=== PATIENT | female | born 2000 | race Caucasian/White ===

== ENCOUNTER 2024-06-14 16:29 | Emergency (ER) | payer MEDICAID ==
[~2024-06-14] VITALS: Ht 154.9 cm; Wt 88.5 kg
[2024-06-14] MEDS ORDERED: hydrOXYzine pamoate 25 MG CAP PO ONE (17:00)
[2024-06-14] MEDS ORDERED: VISTARIL25 MG PO (17:56)
== END 2024-06-14 18:33 | disposition home or self-care (01) ==
LOC: ED 16:29
DX: F41.9 Anxiety disorder, unspecified (principal); R07.89 Other chest pain; F17.290 Nicotine dependence, other tobacco product, uncomplicated

== ENCOUNTER 2024-11-10 13:20 | Emergency (ER) | payer MEDICAID ==
[~2024-11-10] VITALS: Ht 157.4 cm; Wt 93.4 kg
[~2024-11-10 13:20] MED LIST: VISTARIL25 MG PO
[2024-11-10 14:19] LABS: BASO # 0.1 10*3/uL (0.0-0.1); BASO % 0.7 % (0.0-1.0); EOS # 0.3 10*3/uL (0.0-0.4); EOS % 3.6 % (1.0-4.0); MEAN CELL VOLUME 89.7 fl (81.0-99.0); MEAN CORPUSCULAR HGB 30.1 pg (27.0-31.0); MEAN CORPUSCULAR HGB CONC 33.6 g/dl (33.0-37.0); MEAN PLATELET VOLUME 9.3 fl (9.6-12.3); MONO # 0.3 10*3/uL (0.1-1.0); MONO % 4.1 % (3.0-9.0); NEUT # 4.6 10*3/uL (2.3-7.9); NEUT % 60.7 % (47.0-73.0); PLATELET COUNT AUTOMATED 238 10*3/uL (130-400); RED BLOOD COUNT 4.68 10*6/uL (4.10-5.10); RED CELL DISTRI WIDTH 13.2 % (0-14.5); WHITE BLOOD COUNT 7.6 10*3/uL (4.8-10.8)
[2024-11-10 14:36] LABS: BUN 13 mg/dl (9-23); CHLORIDE 107 mmol/L (98-107)
[2024-11-10] MEDS ORDERED: Sulfamethoxazole/Trimethopri 1 TAB TAB PO ONE (15:15)
[2024-11-10] MEDS ORDERED: SEPTDS PO (15:16)
== END 2024-11-10 15:32 | disposition home or self-care (01) ==
LOC: ED 13:20
PROVIDERS: Emergency Medicine
DX: L03.311 Cellulitis of abdominal wall (principal); Z91.030 Bee allergy status; Z98.890 Other specified postprocedural states

== ENCOUNTER 2024-11-14 08:42 | Emergency (ER) | payer MEDICAID ==
[~2024-11-14] VITALS: Ht 157.4 cm; Wt 102.7 kg
[~2024-11-14 08:42] MED LIST changes: +SEPTDS PO
[2024-11-14 09:29] LABS: BASO % 0.4 % (0.0-1.0); EOS # 0.2 10*3/uL (0.0-0.4); EOS % 2.5 % (1.0-4.0); HEMATOCRIT 40.1 % (37.0-47.0); MEAN CELL VOLUME 88.7 fl (81.0-99.0); MEAN CORPUSCULAR HGB 30.1 pg (27.0-31.0); MEAN CORPUSCULAR HGB CONC 33.9 g/dl (33.0-37.0); MEAN PLATELET VOLUME 9.2 fl (9.6-12.3); MONO # 0.3 10*3/uL (0.1-1.0); MONO % 4.4 % (3.0-9.0); NEUT # 4.9 10*3/uL (2.3-7.9); NEUT % 63.2 % (47.0-73.0); PLATELET COUNT AUTOMATED 242 10*3/uL (130-400); RED BLOOD COUNT 4.52 10*6/uL (4.10-5.10); RED CELL DISTRI WIDTH 13.3 % (0-14.5); WHITE BLOOD COUNT 7.7 10*3/uL (4.8-10.8)
[2024-11-14 09:59] LABS: ALKALINE PHOSPHATASE 59 U/L (46-116); BUN 13 mg/dl (9-23); CHLORIDE 107 mmol/L (98-107); POTASSIUM 3.2 mmol/L (3.4-5.1); SGPT/ALT 25 U/L (5-49); TOTAL PROTEIN 7.1 gm/dL (6.0-8.0)
[2024-11-14] MEDS ORDERED: KEFLEX 500 MG E2 CAP PO (12:38)
== END 2024-11-14 12:48 | disposition home or self-care (01) ==
LOC: ED 08:42
PROVIDERS: Emergency Medicine
DX: A49.02 Methicillin resistant Staphylococcus aureus infection, unspecified site (principal); F41.9 Anxiety disorder, unspecified; Z79.899 Other long term (current) drug therapy; Z91.030 Bee allergy status; Z98.890 Other specified postprocedural states

== ENCOUNTER 2024-12-09 17:57 | Emergency (ER) | payer OTHER ==
[~2024-12-09] VITALS: Ht 154.9 cm; Wt 104.3 kg
[~2024-12-09 17:57] MED LIST changes: +KEFLEX 500 MG E2 CAP PO
[2024-12-09] MEDS ORDERED: methylPREDNISolone acetate 40 MG/ML VIAL IM ONE (18:20)
[2024-12-09] MEDS ORDERED: MYCOLOG OINTMEN15 GM T (18:30)
[2024-12-09] MEDS ORDERED: PREDNISONE10 M1 PO (18:30)
== END 2024-12-09 19:05 | disposition home or self-care (01) ==
LOC: ED 17:57
DX: L25.5 Unspecified contact dermatitis due to plants, except food (principal); Z91.030 Bee allergy status; Z98.890 Other specified postprocedural states

== ENCOUNTER 2024-12-21 10:34 | Emergency (ER) | payer OTHER ==
[~2024-12-21] VITALS: Ht 154.9 cm; Wt 102.1 kg
[~2024-12-21 10:34] MED LIST changes: +MYCOLOG OINTMEN15 GM T; +PREDNISONE10 M1 PO
[2024-12-21] MEDS ORDERED: SODIUM POLYSTYRENE SULFONATE 15 GM/60 ML BOT PO ONE (10:55)
[2024-12-21] MEDS ORDERED: MAGNESIUM CITRATE 296 ML BOT PO ONE (10:55)
[2024-12-21] MEDS ORDERED: COLACE 2-IN-11 EACH PO (11:54)
== END 2024-12-21 12:00 | disposition home or self-care (01) ==
LOC: ED 10:34
DX: K59.00 Constipation, unspecified (principal); Z91.030 Bee allergy status; Z79.899 Other long term (current) drug therapy; Z98.890 Other specified postprocedural states

== ENCOUNTER 2025-02-02 16:46 | Emergency (ER) | payer OTHER ==
[~2025-02-02] VITALS: Ht 154.9 cm; Wt 90.7 kg
[~2025-02-02 16:46] MED LIST changes: +COLACE 2-IN-11 EACH PO
[2025-02-02] MEDS ORDERED: SODIUM CHLORIDE 0.9% 1,000 ML IV ONE (16:55)
[2025-02-02] MEDS ORDERED: IOHEXOL 300 MG/ML 100 ML VIAL IV ONE (17:05)
[2025-02-02 17:08] LABS: BASO # 0.0 10*3/uL (0.0-0.1); BASO % 0.3 % (0.0-1.0); EOS # 0.1 10*3/uL (0.0-0.4); EOS % 0.8 % (1.0-4.0); MEAN CELL VOLUME 85.3 fl (81.0-99.0); MEAN CORPUSCULAR HGB 30.3 pg (27.0-31.0); MEAN PLATELET VOLUME 9.3 fl (9.6-12.3); MONO # 0.5 10*3/uL (0.1-1.0); MONO % 5.2 % (3.0-9.0); NEUT # 6.2 10*3/uL (2.3-7.9); NEUT % 68.3 % (47.0-73.0); NUCLEATED RED BLOOD CELL 0.0 % (0.0-0.0); NUCLEATED RED BLOOD CELL 0.0 10*3/uL (0.0-0.0); PLATELET COUNT AUTOMATED 264 10*3/uL (130-400); RED CELL DISTRI WIDTH 13.2 % (0-14.5)
[2025-02-02] MEDS ORDERED: Metoclopramide Hydrochloride 10 MG/2 ML VIAL IV ONE (17:10)
[2025-02-02] MEDS ORDERED: diphenhydrAMINE hydrochloride 50 MG/ML VIAL IV ONE (17:10)
[2025-02-02] MEDS ORDERED: IOHEXOL 300 MG/ML 100 ML VIAL ONE (17:27)
[2025-02-02 17:29] LABS: BUN 13 mg/dl (9-23); SGPT/ALT 27 U/L (5-49)
[2025-02-02 18:35] LABS: BILIRUBIN Negative (Negative); BLOOD Negative (Negative); CLARITY Clear (Clear); COLOR Yellow (Yellow); KETONE 2+ (Negative); LEUKO ESTERASE Negative (Negative); NITRITE Negative (Negative); PH 5.5 (4.5-8.0); SPECIFIC GRAVITY >= 1.030 (1.001-1.030); UROBILINOGEN 1.0 E.U./dl (0.0-1.0)
[2025-02-02 18:42] LABS: URINE AMPHETAMINES Negative (1000ng/ml); URINE BARBITURATES Negative (200ng/ml); URINE BENZODIAZEPINES Negative (200ng/ml); URINE CANNABINOIDS (THC) Positive (50ng/ml); URINE COCAINE Negative (300ng/ml); URINE METHADONE Negative (300ng/ml); URINE OPIATES Negative (300ng/ml); URINE PHENCYCLIDINE Negative (25ng/ml)
[2025-02-02 19:02] LABS: BACTERIA 1+; EPITHELIAL CELLS 51-100; MUCOUS TRACE; WBC 0-2 wbc/hpf (0-5)
[2025-02-02] MEDS ORDERED: Ondansetron Hydrochloride 4 MG/2 ML VIAL IV ONE (19:35)
[2025-02-02] MEDS ORDERED: REGLAN10 M1 PO (20:07)
[2025-02-02] MEDS ORDERED: OMEPRAZOLE40 MG PO (20:07)
[2025-02-02] MEDS ORDERED: Ondansetron4 MG PO (20:07)
[2025-02-02] MEDS ORDERED: Ondansetron 4 MG 2 TAB ED PACK PO SCH (20:10)
[2025-02-06] MEDS ORDERED: EFFER-K20 MEQ PO (08:58)
== END 2025-02-02 20:32 | disposition home or self-care (01) ==
LOC: ED 16:46
PROVIDERS: Internal Medicine
DX: F12.10 Cannabis abuse, uncomplicated (principal); R11.2 Nausea with vomiting, unspecified; R10.9 Unspecified abdominal pain; F41.9 Anxiety disorder, unspecified; Z91.030 Bee allergy status; Z79.899 Other long term (current) drug therapy; Z98.890 Other specified postprocedural states

== ENCOUNTER 2025-02-05 17:25 | Emergency (ER) | payer OTHER ==
[~2025-02-05] VITALS: Ht 154.9 cm; Wt 98.0 kg
[~2025-02-05 17:25] MED LIST changes: +OMEPRAZOLE40 MG PO; +Ondansetron4 MG PO; +REGLAN10 M1 PO
[2025-02-05] MEDS ORDERED: diphenhydrAMINE hydrochloride 50 MG/ML VIAL IV ONE (18:15)
[2025-02-05] MEDS ORDERED: IOHEXOL 300 MG/ML 100 ML VIAL IV ONE (18:15)
[2025-02-05] MEDS ORDERED: SODIUM CHLORIDE 0.9% 1,000 ML IV ONE (18:15)
[2025-02-05] MEDS ORDERED: Metoclopramide Hydrochloride 10 MG/2 ML VIAL IV ONE (18:15)
[2025-02-05 18:22] LABS: BASO # 0.0 10*3/uL (0.0-0.1); BASO % 0.3 % (0.0-1.0); EOS # 0.0 10*3/uL (0.0-0.4); EOS % 0.2 % (1.0-4.0); MEAN CELL VOLUME 87.0 fl (81.0-99.0); MEAN CORPUSCULAR HGB 29.9 pg (27.0-31.0); MEAN PLATELET VOLUME 9.4 fl (9.6-12.3); MONO # 0.5 10*3/uL (0.1-1.0); MONO % 5.2 % (3.0-9.0); NEUT # 7.9 10*3/uL (2.3-7.9); NEUT % 78.9 % (47.0-73.0); NUCLEATED RED BLOOD CELL 0.0 % (0.0-0.0); NUCLEATED RED BLOOD CELL 0.0 10*3/uL (0.0-0.0); PLATELET COUNT AUTOMATED 269 10*3/uL (130-400); RED CELL DISTRI WIDTH 13.1 % (0-14.5)
[2025-02-05] MEDS ORDERED: IOHEXOL 300 MG/ML 100 ML VIAL ONE (18:37)
[2025-02-05 18:44] LABS: BUN 11 mg/dl (9-23); SGPT/ALT 55 U/L (5-49)
[2025-02-05 19:37] LABS: BILIRUBIN Negative (Negative); BLOOD Negative (Negative); CLARITY Clear (Clear); COLOR Yellow (Yellow); KETONE 3+ (Negative); LEUKO ESTERASE Negative (Negative); NITRITE Negative (Negative); PH 6.0 (4.5-8.0); SPECIFIC GRAVITY 1.020 (1.001-1.030); UROBILINOGEN 1.0 E.U./dl (0.0-1.0)
[2025-02-05 19:48] LABS: EPITHELIAL CELLS 31-40; MUCOUS TRACE; RBC 0-2 rbc/hpf (0-2); WBC 0-2 wbc/hpf (0-5)
[2025-02-05] MEDS ORDERED: diazePAM 10 MG/2 ML SYR IV ONE (20:10)
[2025-02-05] MEDS ORDERED: Phenergan25 MG PO (21:36)
[2025-02-06] MEDS ORDERED: EFFER-K20 MEQ PO (08:58)
[2025-02-11] MEDS ORDERED: ONDANSETRON HYDR4 MG PO (13:56)
== END 2025-02-05 21:54 | disposition home or self-care (01) ==
LOC: ED 17:25
PROVIDERS: Internal Medicine
DX: R11.10 Vomiting, unspecified (principal); F12.90 Cannabis use, unspecified, uncomplicated; E87.6 Hypokalemia; R79.89 Other specified abnormal findings of blood chemistry; R10.32 Left lower quadrant pain; Z91.030 Bee allergy status; Z79.899 Other long term (current) drug therapy; Z98.890 Other specified postprocedural states; Z87.42 Personal history of other diseases of the female genital tract

== ENCOUNTER 2025-02-06 20:57 | Emergency (ER) | payer OTHER ==
[~2025-02-06] VITALS: Ht 154.9 cm; Wt 94.3 kg
[~2025-02-06 20:57] MED LIST changes: +EFFER-K20 MEQ PO; +Phenergan25 MG PO
[2025-02-06] MEDS ORDERED: MG-AL HYDROXIDE/SIMETICONE 30 ML UDC PO ONE (23:35)
[2025-02-06] MEDS ORDERED: Dicyclomine Hydrochloride 20 MG/10 ML OSYR PO ONE (23:35)
[2025-02-06 23:45] LABS: BASO # 0.0 10*3/uL (0.0-0.1); BASO % 0.3 % (0.0-1.0); EOS # 0.3 10*3/uL (0.0-0.4); EOS % 2.6 % (1.0-4.0); MEAN CELL VOLUME 87.3 fl (81.0-99.0); MEAN CORPUSCULAR HGB 29.8 pg (27.0-31.0); MEAN PLATELET VOLUME 9.1 fl (9.6-12.3); MONO # 0.8 10*3/uL (0.1-1.0); MONO % 8.2 % (3.0-9.0); NEUT # 5.6 10*3/uL (2.3-7.9); NEUT % 56.7 % (47.0-73.0); NUCLEATED RED BLOOD CELL 0.0 % (0.0-0.0); NUCLEATED RED BLOOD CELL 0.0 10*3/uL (0.0-0.0); PLATELET COUNT AUTOMATED 238 10*3/uL (130-400); RED CELL DISTRI WIDTH 13.2 % (0-14.5)
[2025-02-07 00:09] LABS: BUN 9 mg/dl (9-23); SGPT/ALT 66 U/L (5-49)
[2025-02-07 00:24] LABS: BILIRUBIN 2+ (Negative); BLOOD Negative (Negative); CLARITY Cloudy (Clear); COLOR Dark Yellow (Yellow); KETONE 3+ (Negative); LEUKO ESTERASE 1+ (Negative); NITRITE Negative (Negative); PH 6.0 (4.5-8.0); SPECIFIC GRAVITY >= 1.030 (1.001-1.030); UROBILINOGEN 2.0 E.U./dl (0.0-1.0)
[2025-02-07 00:28] LABS: URINE AMPHETAMINES Negative (1000ng/ml); URINE BARBITURATES Negative (200ng/ml); URINE BENZODIAZEPINES Positive (200ng/ml); URINE CANNABINOIDS (THC) Positive (50ng/ml); URINE COCAINE Negative (300ng/ml); URINE METHADONE Negative (300ng/ml); URINE OPIATES Negative (300ng/ml); URINE PHENCYCLIDINE Negative (25ng/ml)
[2025-02-07 00:41] LABS: BACTERIA 2+; EPITHELIAL CELLS TNTC; WBC 16-20 wbc/hpf (0-5)
[2025-02-07] MEDS ORDERED: Acetaminophen/Hydrocodone 5 MG/325 MG TABLET PO ONE (01:25)
[2025-02-07] MEDS ORDERED: Ondansetron Hydrochloride 4 MG TAB SL ONE (01:25)
== END 2025-02-07 03:56 | disposition home or self-care (01) ==
LOC: ED 20:57
PROVIDERS: Emergency Medicine
DX: R10.11 Right upper quadrant pain (principal); R74.01 Elevation of levels of liver transaminase levels; R11.2 Nausea with vomiting, unspecified; Z91.030 Bee allergy status; Z79.899 Other long term (current) drug therapy; Z98.890 Other specified postprocedural states

== ENCOUNTER → 2025-02-07 | Outpatient (CLI) | payer OTHER | END | disposition home or self-care (01) | LOC: LAB 15:03 → RESCLI 15:03 | PROVIDERS: Student in an Organized Health Care Education/Training Program; ATTEND Internal Medicine | DX: R74.01 Elevation of levels of liver transaminase levels (principal) ==

== ENCOUNTER 2025-02-13 13:33 | Emergency (ER) | payer OTHER ==
[~2025-02-13] VITALS: Ht 154.9 cm; Wt 93.9 kg
[~2025-02-13 13:33] MED LIST changes: +ONDANSETRON HYDR4 MG PO
[2025-02-13] MEDS ORDERED: IBUPROFEN 600 MG TAB PO ONE (14:30)
== END 2025-02-13 15:43 | disposition home or self-care (01) ==
LOC: ED 13:33
DX: I80.8 Phlebitis and thrombophlebitis of other sites (principal); I50.9 Heart failure, unspecified; Z91.030 Bee allergy status; Z79.899 Other long term (current) drug therapy; Z98.890 Other specified postprocedural states

== ENCOUNTER → 2025-03-13 | Outpatient (CLI) | payer OTHER | END | disposition home or self-care (01) | LOC: RAD 13:44 | PROVIDERS: ATTEND Family Medicine | DX: M43.8X3 Other specified deforming dorsopathies, cervicothoracic region (principal); M41.9 Scoliosis, unspecified ==